=== PATIENT | male | born 1960 | race Caucasian/White ===

== ENCOUNTER 2021-12-16 18:21 | Inpatient (IN) | payer BC ==
[2021-12-16 19:17] LABS: #Eosinphils 0.1 thou/uL (0.0-0.7); #Lymphocytes 1.7 thou/uL (1.20-3.40); #Monocytes 0.7 thou/uL (0.11-0.59); #Neutrophils 4.9 thou/uL (1.40-6.50); %Basophils 0.6 % (0.0-1.0); %Eosinophils 1.9 % (0.0-10.0); %Lymphocytes 22.7 % (21.0-51.0); %Monocytes 9.2 % (0.0-10.0); %Neutrophils 65.6 % (42.0-75.0); Hemoglobin 13.8 g/dL (14.0-18.0); Mean Corpuscular HGB CONC 33.1 g/dL (32.0-36.0); Mean Corpuscular Hemoglobin 29.1 pg (27.0-31.0); Mean Corpuscular Volume 87.9 fL (78.0-98.0); Mean Platelet Volume 6.8 fL (7.4-10.4); Platelet Count 284 thou/uL (130-400); RBC Distribution Width 12.1 % (11.5-14.5); Red Blood Cell (RBC) Count 4.76 mill/uL (4.70-6.10); White Blood Cell (WBC) Count 7.4 thou/uL (4.8-10.8)
[2021-12-16 19:42] LABS: ALT (SGPT) 43 U/L (8-55); AST (SGOT) 33 U/L (5-34); Albumin 3.9 g/dL (3.4-4.8); Alkaline Phosphatase 78 U/L (40-110); Anion Gap 13 mmol/L (10-20); BUN (Urea Nitrogen) 18 mg/dL (8.4-25.7); Bilirubin, Total 0.9 mg/dL (0.2-1.2); Calc. Creatinine Clearance 0 mL/min (70-130); Calcium 8.4 mg/dL (7.8-10.44); Carbon Dioxide 24 mmol/L (23-31); Chloride 104 mmol/L (98-107); Glucose 88 mg/dL (80-115); Potassium 3.8 mmol/L (3.5-5.1); Protein, Total 6.9 g/dL (5.8-8.1); Sodium 137 mmol/L (136-145)
[2021-12-16] MEDS ORDERED: Ondansetron PF 4 MG/2 ML Vial IVP PRN (21:34)
[2021-12-16] MEDS ORDERED: Zolpidem Tartrate 5 MG TAB PO PRN (21:34)
[2021-12-16] MEDS ORDERED: hydrALAZINE 20 MG/ML VIAL SLOW IVP PRN (21:34)
[2021-12-16] MEDS ORDERED: Bisacodyl 5 MG TAB PO PRN (21:34)
[2021-12-16] MEDS ORDERED: HYDROcodone/Acetaminophen 5/325 mg Tablet PO PRN (21:34)
[2021-12-16 22:52] VITALS: BMI 26.9
[2021-12-17 04:30] LABS: #Basophils 0.1 thou/uL (0.0-0.2); #Eosinphils 0.2 thou/uL (0.0-0.7); #Lymphocytes 1.2 thou/uL (1.20-3.40); #Monocytes 0.7 thou/uL (0.11-0.59); #Neutrophils 4.5 thou/uL (1.40-6.50); %Basophils 0.8 % (0.0-1.0); %Eosinophils 2.3 % (0.0-10.0); %Lymphocytes 17.8 % (21.0-51.0); %Monocytes 11.1 % (0.0-10.0); Hemoglobin 13.7 g/dL (14.0-18.0); Mean Corpuscular HGB CONC 33.4 g/dL (32.0-36.0); Mean Corpuscular Hemoglobin 28.7 pg (27.0-31.0); Mean Platelet Volume 6.9 fL (7.4-10.4); Platelet Count 296 thou/uL (130-400); RBC Distribution Width 12.3 % (11.5-14.5); Red Blood Cell (RBC) Count 4.76 mill/uL (4.70-6.10); White Blood Cell (WBC) Count 6.6 thou/uL (4.8-10.8)
[2021-12-17 05:01] LABS: ALT (SGPT) 39 U/L (8-55); AST (SGOT) 26 U/L (5-34); Albumin 3.9 g/dL (3.4-4.8); Alkaline Phosphatase 74 U/L (40-110); Anion Gap 12 mmol/L (10-20); BUN (Urea Nitrogen) 14 mg/dL (8.4-25.7); Bilirubin, Total 0.9 mg/dL (0.2-1.2); Calc. Creatinine Clearance 93 mL/min (70-130); Carbon Dioxide 25 mmol/L (23-31); Cardiac Risk 4.2 (Less than 4.5); Chloride 105 mmol/L (98-107); Cholesterol 146 mg/dl (< 200 Desired); Globulin 3.3 g/dL (2.4-3.5); Glucose 111 mg/dL (80-115); HDL Cholesterol 35 mg/dL (>60 Neg Risk); LDL Cholesterol, Calculated 92 mg/dL; Potassium 3.4 mmol/L (3.5-5.1); Protein, Total 7.2 g/dL (5.8-8.1); Sodium 139 mmol/L (136-145); Triglycerides 97 mg/dL (Less than 150)
[2021-12-17] MEDS: Acetaminophen 325 MG TAB PO PRN (06:28)
[2021-12-17] MEDS ORDERED: Losartan/Hydrochlorothiazide 100 mg/25 mg Tablet PO SCH (09:00)
[2021-12-17] MEDS: Famotidine 20 MG TAB PO SCH ×2 (10:30→20:28)
[2021-12-17] MEDS: Clopidogrel Bisulfate 75 MG TAB PO SCH (10:30)
[2021-12-17] MEDS: Aspirin 81 mg Enteric Coated Tablet PO SCH (10:30)
[2021-12-17] MEDS: Enoxaparin Sodium 40 MG/0.4 ML SYRINGE SC SCH (10:30)
[2021-12-17] MEDS: Atorvastatin Calcium 40 MG TAB PO SCH (20:28)
[2021-12-18 04:57] LABS: #Lymphocytes 1.5 thou/uL (1.20-3.40); #Monocytes 0.6 thou/uL (0.11-0.59); #Neutrophils 4.9 thou/uL (1.40-6.50); %Basophils 0.5 % (0.0-1.0); %Eosinophils 0.6 % (0.0-10.0); %Lymphocytes 20.8 % (21.0-51.0); %Monocytes 8.8 % (0.0-10.0); %Neutrophils 69.3 % (42.0-75.0); Hemoglobin 14.1 g/dL (14.0-18.0); Mean Corpuscular HGB CONC 33.5 g/dL (32.0-36.0); Mean Corpuscular Hemoglobin 29.4 pg (27.0-31.0); Mean Corpuscular Volume 87.7 fL (78.0-98.0); Mean Platelet Volume 6.9 fL (7.4-10.4); Platelet Count 273 thou/uL (130-400); RBC Distribution Width 12.1 % (11.5-14.5); Red Blood Cell (RBC) Count 4.79 mill/uL (4.70-6.10)
[2021-12-18 05:18] LABS: Anion Gap 10 mmol/L (10-20); BUN (Urea Nitrogen) 10 mg/dL (8.4-25.7); Calc. Creatinine Clearance 92 mL/min (70-130); Calcium 8.7 mg/dL (7.8-10.44); Carbon Dioxide 26 mmol/L (23-31); Chloride 100 mmol/L (98-107); Glucose 106 mg/dL (80-115); Potassium 3.3 mmol/L (3.5-5.1); Sodium 133 mmol/L (136-145)
[2021-12-18] MEDS ORDERED: Electrolyte Replacement Protocol 1 EACH FS SCH (08:15)
[2021-12-18] MEDS ORDERED: Potassium Chloride 20 MEQ TAB PO SCH (08:15)
[2021-12-18 08:27] LABS: Magnesium 1.9 mg/dL (1.6-2.6)
[2021-12-18] MEDS: Aspirin 81 mg Enteric Coated Tablet PO SCH (08:55)
[2021-12-18] MEDS: Clopidogrel Bisulfate 75 MG TAB PO SCH (08:56)
[2021-12-18] MEDS: Famotidine 20 MG TAB PO SCH ×2 (08:56→20:28)
[2021-12-18] MEDS: Enoxaparin Sodium 40 MG/0.4 ML SYRINGE SC SCH (08:56)
[2021-12-18] MEDS: Acetaminophen 325 MG TAB PO PRN (08:57)
[2021-12-18] MEDS ORDERED: Losartan 25 MG TAB PO SCH (09:00)
[2021-12-18] MEDS ORDERED: Hydrochlorothiazide 25 MG TAB PO SCH (09:00)
[2021-12-18] MEDS: Magnesium 2 GM/50 ML(in water) 2 GM in Premix Bag 1 BAG IVPB SCH ×2 (12:06→12:31)
[2021-12-18] MEDS ORDERED: Magnesium Oxide 400 MG TAB PO SCH (12:15)
[2021-12-18] MEDS: Atorvastatin Calcium 40 MG TAB PO SCH (20:28)
[2021-12-19 04:37] LABS: Anion Gap 11 mmol/L (10-20); BUN (Urea Nitrogen) 12 mg/dL (8.4-25.7); Calc. Creatinine Clearance 84 mL/min (70-130); Calcium 8.9 mg/dL (7.8-10.44); Carbon Dioxide 28 mmol/L (23-31); Chloride 101 mmol/L (98-107); Glucose 100 mg/dL (80-115); Potassium 3.5 mmol/L (3.5-5.1); Sodium 136 mmol/L (136-145)
[2021-12-19] MEDS ORDERED: Potassium Chloride 20 MEQ TAB PO SCH (08:00)
[2021-12-19] MEDS ORDERED: Magnesium Oxide 400 MG TAB PO SCH (09:00)
[2021-12-19] MEDS ORDERED: Losartan 25 MG TAB PO SCH (09:00)
[2021-12-19] MEDS: Enoxaparin Sodium 40 MG/0.4 ML SYRINGE SC SCH (09:12)
[2021-12-19] MEDS: Clopidogrel Bisulfate 75 MG TAB PO SCH (09:12)
[2021-12-19] MEDS: Aspirin 81 mg Enteric Coated Tablet PO SCH (09:12)
[2021-12-19] MEDS: Famotidine 20 MG TAB PO SCH (09:13)
[2021-12-19 11:40] VITALS: BP 165/79; TEMP 98.4
== END 2021-12-19 13:10 | disposition home or self-care (01) | DRG 66 ==
LOC: ERS 18:21 → ERHOLD 20:43 → 2NO 21:52 → OBSVTOIN 12-17 12:34
PROVIDERS: ADMIT Internal Medicine; ATTEND Internal Medicine
DX: I63.511 Cerebral infarction due to unspecified occlusion or stenosis of right middle cerebral artery (principal); Z20.822 Contact with and (suspected) exposure to COVID-19; R29.700 NIHSS score 0; E78.5 Hyperlipidemia, unspecified; N18.2 Chronic kidney disease, stage 2 (mild); I12.9 Hypertensive chronic kidney disease with stage 1 through stage 4 chronic kidney disease, or unspecified chronic kidney disease; I65.23 Occlusion and stenosis of bilateral carotid arteries; I95.89 Other hypotension; E87.6 Hypokalemia; E83.42 Hypomagnesemia; Z87.891 Personal history of nicotine dependence; Z91.041 Radiographic dye allergy status; I69.334 Monoplegia of upper limb following cerebral infarction affecting left non-dominant side; Z90.49 Acquired absence of other specified parts of digestive tract; Z98.890 Other specified postprocedural states; Z82.3 Family history of stroke; Z79.899 Other long term (current) drug therapy; Z79.82 Long term (current) use of aspirin
CPT/HCPCS: 36415; 70450; 70551; 74230; 80048; 80053; 80061; 83090; 83520; 83735; 84484; 85025; 86038; 86200; 86225; 93306; 95712; 95819; 95957; 96372; G0378; J1650; J3475; U0003; U0005

== ENCOUNTER 2025-07-04 18:06 | Inpatient (IN) | payer MEDICARE ==
[2025-07-04 18:24] LABS: #Basophils 0.04 10x3/uL (0.0-0.2); #Eosinophils Less than 0.03 10x3/uL (0.0-0.7); #Monocytes 0.94 10x3/uL (0.11-0.59); #Neutrophils 8.23 10x3/uL (1.40-6.50); %Basophils 0.4 % (0.0-1.0); %Eosinophils 0.2 % (0.0-10.0); %Lymphocytes 15.3 % (21.0-51.0); %Monocytes 8.6 % (0.0-10.0); %Neutrophils 75.1 % (42.0-75.0); Hematocrit 37.9 % (42.0-52.0); Hemoglobin 12.4 g/dL (14.0-18.0); Mean Corpuscular Hemoglobin 27.6 pg (27.0-31.0); Mean Corpuscular Volume 84.2 fL (78.0-98.0); Platelet Count 402 10x3/uL (130-400); Red Blood Cell (RBC) Count 4.50 mill/uL (4.70-6.10); White Blood Cell (WBC) Count 10.95 10x3/uL (4.8-10.8)
[2025-07-04 18:41] LABS: INR-International Normal Ratio 1.0; PTT 29.0 sec (22.9-36.1); Prothrombin Time 12.9 sec (12.0-14.7)
[2025-07-04 18:43] LABS: ALT (SGPT) 26 U/L (Less than 45); AST (SGOT) 25 U/L (11-34); Albumin 3.6 g/dL (3.1-4.5); Alkaline Phosphatase 73 U/L (40-110); Anion Gap 15 mmol/L (10-20); BUN (Urea Nitrogen) 13 mg/dL (8.4-25.7); Bilirubin, Total 0.6 mg/dL (0.3-1.2); Calc. Creatinine Clearance 0 mL/min (70-130); Calcium 9.0 mg/dL (7.8-10.44); Carbon Dioxide 25 mmol/L (23-31); Chloride 103 mmol/L (98-107); Globulin 3.6 g/dL (2.4-3.5); Glucose 108 mg/dL (80-115); Potassium 4.5 mmol/L (3.5-5.1); Sodium 138 mmol/L (136-145)
[2025-07-04] MEDS ORDERED: niCARdipine 25 MG in Sodium Chloride 0.9% 250 ML 250 ML IVPB PRN (19:40)
[2025-07-04] MEDS ORDERED: niCARdipine 25 MG/10 ML SDV ONE (20:00)
[2025-07-04] MEDS ORDERED: Acetaminophen 325 MG TAB PO PRN (20:40)
[2025-07-04] MEDS: niCARdipine 25 MG in Sodium Chloride 0.9% 250 ML 250 ML IVPB PRN (23:44)
[2025-07-04] MEDS: HYDROcodone/Acetaminophen 5/325 mg Tablet PO PRN (23:45)
[2025-07-04] MEDS: levETIRAcetam 500 MG TAB PO SCH ×2 (23:45)
[2025-07-05] MEDS: niCARdipine 50 MG, Admixture Fee 1 EACH in Sodium Chloride 0.9% 250 ML 230 ML IV SCH (01:11)
[2025-07-05 03:32] LABS: #Basophils 0.04 10x3/uL (0.0-0.2); #Eosinophils 0.08 10x3/uL (0.0-0.7); #Monocytes 0.84 10x3/uL (0.11-0.59); #Neutrophils 5.53 10x3/uL (1.40-6.50); %Basophils 0.5 % (0.0-1.0); %Eosinophils 0.9 % (0.0-10.0); %Lymphocytes 23.6 % (21.0-51.0); %Monocytes 9.9 % (0.0-10.0); %Neutrophils 65.0 % (42.0-75.0); Hematocrit 36.6 % (42.0-52.0); Hemoglobin 11.7 g/dL (14.0-18.0); Mean Corpuscular Hemoglobin 27.3 pg (27.0-31.0); Mean Corpuscular Volume 85.5 fL (78.0-98.0); Platelet Count 345 10x3/uL (130-400); Red Blood Cell (RBC) Count 4.28 mill/uL (4.70-6.10); White Blood Cell (WBC) Count 8.51 10x3/uL (4.8-10.8)
[2025-07-05 03:50] LABS: Anion Gap 14 mmol/L (10-20); BUN (Urea Nitrogen) 9 mg/dL (8.4-25.7); Calc. Creatinine Clearance 119 mL/min (70-130); Calcium 8.3 mg/dL (7.8-10.44); Carbon Dioxide 24 mmol/L (23-31); Chloride 103 mmol/L (98-107); Glucose 105 mg/dL (80-115); Potassium 3.5 mmol/L (3.5-5.1); Sodium 137 mmol/L (136-145)
[2025-07-05 04:51] VITALS: BMI 28.5
[2025-07-05] MEDS: Losartan 25 MG TAB PO SCH (09:45)
[2025-07-05] MEDS: hydrALAZINE 20 MG/ML VIAL SLOW IVP PRN (14:20)
[2025-07-05] MEDS: Acetaminophen/Codeine 30-300mg Tablet PO PRN (14:54)
[2025-07-06] MEDS: Fioricet 325/50/40 mg Tablet PO PRN (01:23)
[2025-07-06] MEDS: Ondansetron PF 4 MG/2 ML Vial IVP SCH (02:21)
[2025-07-06] MEDS: Ondansetron 2MG/ML MDV 8 MG in Sodium Chloride 0.9% 50 ML IVPB SCH (10:22)
[2025-07-06] MEDS: oxyCODONE 5 MG TAB PO PRN (20:45)
[2025-07-07] MEDS: hydrALAZINE 20 MG/ML VIAL SLOW IVP PRN (04:19)
[2025-07-07 04:40] LABS: #Basophils Less than 0.03 10x3/uL (0.0-0.2); #Eosinophils 0.06 10x3/uL (0.0-0.7); #Monocytes 0.67 10x3/uL (0.11-0.59); #Neutrophils 6.01 10x3/uL (1.40-6.50); %Basophils 0.3 % (0.0-1.0); %Eosinophils 0.8 % (0.0-10.0); %Lymphocytes 13.1 % (21.0-51.0); %Monocytes 8.6 % (0.0-10.0); %Neutrophils 76.8 % (42.0-75.0); Hematocrit 35.2 % (42.0-52.0); Hemoglobin 11.4 g/dL (14.0-18.0); Mean Corpuscular Hemoglobin 27.1 pg (27.0-31.0); Mean Corpuscular Volume 83.6 fL (78.0-98.0); Platelet Count 347 10x3/uL (130-400); Red Blood Cell (RBC) Count 4.21 mill/uL (4.70-6.10); White Blood Cell (WBC) Count 7.81 10x3/uL (4.8-10.8)
[2025-07-07] MEDS ORDERED: Nitroglycerin 0.4 MG TAB (25 Tab Bottle) SL PRN (04:46)
[2025-07-07 04:58] LABS: Anion Gap 13 mmol/L (10-20); BUN (Urea Nitrogen) 12 mg/dL (8.4-25.7); Calc. Creatinine Clearance 107 mL/min (70-130); Calcium 8.5 mg/dL (7.8-10.44); Carbon Dioxide 25 mmol/L (23-31); Chloride 99 mmol/L (98-107); Glucose 97 mg/dL (80-115); Potassium 3.5 mmol/L (3.5-5.1); Sodium 133 mmol/L (136-145)
[2025-07-07 05:30] LABS: Magnesium 2.0 mg/dL (1.6-2.6)
[2025-07-07 13:00] VITALS: BMI 28.8
[2025-07-07] MEDS: Megestrol Acetate 800 MG/20 ML UDCUP PO SCH (21:41)
[2025-07-08 04:02] LABS: #Basophils 0.03 10x3/uL (0.0-0.2); #Eosinophils 0.10 10x3/uL (0.0-0.7); #Monocytes 0.69 10x3/uL (0.11-0.59); #Neutrophils 4.99 10x3/uL (1.40-6.50); %Basophils 0.4 % (0.0-1.0); %Eosinophils 1.5 % (0.0-10.0); %Lymphocytes 13.4 % (21.0-51.0); %Monocytes 10.2 % (0.0-10.0); %Neutrophils 74.1 % (42.0-75.0); Hematocrit 35.1 % (42.0-52.0); Hemoglobin 11.3 g/dL (14.0-18.0); Mean Corpuscular Hemoglobin 27.1 pg (27.0-31.0); Mean Corpuscular Volume 84.2 fL (78.0-98.0); Platelet Count 333 10x3/uL (130-400); Red Blood Cell (RBC) Count 4.17 mill/uL (4.70-6.10); White Blood Cell (WBC) Count 6.74 10x3/uL (4.8-10.8)
[2025-07-08 04:12] LABS: Anion Gap 12 mmol/L (10-20); BUN (Urea Nitrogen) 12 mg/dL (8.4-25.7); Calc. Creatinine Clearance 125 mL/min (70-130); Calcium 8.4 mg/dL (7.8-10.44); Carbon Dioxide 23 mmol/L (23-31); Chloride 102 mmol/L (98-107); Glucose 102 mg/dL (80-115); Potassium 3.8 mmol/L (3.5-5.1); Sodium 133 mmol/L (136-145)
[2025-07-08 12:00] VITALS: BP 143/75; TEMP 98.6
== END 2025-07-08 16:00 | disposition home health service (06) | DRG 66 ==
LOC: ERS 18:06 → CCU 20:24 → 2SE 07-05 21:29
PROVIDERS: ADMIT Student in an Organized Health Care Education/Training Program; ATTEND Family Medicine
DX: I62.00 Nontraumatic subdural hemorrhage, unspecified (principal); Z86.718 Personal history of other venous thrombosis and embolism; Z88.8 Allergy status to other drugs, medicaments and biological substances; I10 Essential (primary) hypertension; Z98.890 Other specified postprocedural states; F17.200 Nicotine dependence, unspecified, uncomplicated; Z86.73 Personal history of transient ischemic attack (TIA), and cerebral infarction without residual deficits; R29.701 NIHSS score 1; I16.0 Hypertensive urgency; E78.5 Hyperlipidemia, unspecified
CPT/HCPCS: 36415; 36416; 70450; 70551; 80048; 80053; 83735; 84484; 85025; 85610; 85730; 93005; 93010; 96365; J0360; J2270; J2405; J7030; J7050; Q0162